=== PATIENT | male | born 1985 | race Caucasian/White ===

== ENCOUNTER 2016-10-30 12:40 | Emergency (ER) | payer SELFPAY ==
[2016-10-30 12:50] VITALS: BP 149/87
[2016-10-30] MEDS ORDERED: ONDANSETRON 4 MG TAB.RAPDIS SL ONE (12:55)
[2016-10-30] MEDS ORDERED: OXYCODONE-ACETAMINOPHEN 5-325 MG TABLET PO ONE (12:55)
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
[2016-10-30] MEDS ORDERED: ONDANSETRON ODT 4 MG TAB (6 TAB/DSPK) PO PRN (13:54)
[2016-10-30] MEDS ORDERED: HYDROCODONE/ACETAMINOPHEN 5-325 MG 6 TAB/DSPK PO PRN (13:54)
== END 2016-10-30 14:05 | disposition home or self-care (01) ==
LOC: ER 12:40
DX: S09.90XA Unspecified injury of head, initial encounter (principal); R51 Headache; Y00.XXXA Assault by blunt object, initial encounter; S50.811A Abrasion of right forearm, initial encounter; X93.XXXA Assault by handgun discharge, initial encounter; R11.2 Nausea with vomiting, unspecified; F17.200 Nicotine dependence, unspecified, uncomplicated
CPT/HCPCS: 99284; 73090; 70450; S0119

== ENCOUNTER 2017-01-24 00:33 | Emergency (ER) | payer MEDICAID ==
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
[2017-01-24] MEDS ORDERED: IBUPROFEN 600 MG TABLET PO ONE (02:32)
[2017-01-24 02:49] VITALS: BP 119/70
== END 2017-01-24 02:45 | disposition home or self-care (01) ==
LOC: ER 00:33
DX: S63.91XA Sprain of unspecified part of right wrist and hand, initial encounter (principal); S50.312A Abrasion of left elbow, initial encounter; R07.81 Pleurodynia; M79.641 Pain in right hand; M79.622 Pain in left upper arm; F17.200 Nicotine dependence, unspecified, uncomplicated; Y04.8XXA Assault by other bodily force, initial encounter
CPT/HCPCS: 99283

== ENCOUNTER 2017-01-26 16:58 | Emergency (ER) | payer MEDICAID ==
[2017-01-26] MEDS ORDERED: NORMAL SALINE 1000 ML 1,000 ML IV ONE (17:11)
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
[2017-01-26 17:43] LABS: ABSOLUTE LYMPHOCYTES (AUTO) 1.4 10^3/uL (0.5-4.7); ABSOLUTE MONOCYTES (AUTO) 0.6 10^3/uL (0.1-1.4); ABSOLUTE NEUT (AUTO) 9.7 10^3/uL (1.7-8.2); BASOPHILS % (AUTO) 0.3 % (0-2); EOSINOPHILS % (AUTO) 0.2 % (0-6); HEMATOCRIT 42.8 % (37.9-51.0); HEMOGLOBIN 14.5 g/dL (13.5-17.0); HGB HCT DIFFERENCE 0.7; LYMPHOCYTES % (AUTO) 11.7 % (13-45); MEAN CORPUSCULAR HEMOGLOBIN 31.3 pg (27.0-33.4); MEAN CORPUSCULAR HGB CONC 33.9 g/dL (32.0-36.0); MEAN CORPUSCULAR VOLUME 92 fl (80-97); MONOCYTES % (AUTO) 5.4 % (3-13); RED BLOOD COUNT 4.64 10^6/uL (4.35-5.55); RED CELL DISTRIBUTION WIDTH 13.1 % (11.5-14.0); SEGMENTED NEUTROPHILS % (AUTO) 82.4 % (42-78); WHITE BLOOD COUNT 11.7 10^3/uL (4.0-10.5)
[2017-01-26] MEDS ORDERED: NALOXONE HCL INJ 2 MG/2 ML DISP.SYRIN IV ONE (17:56)
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
[2017-01-26 18:02] LABS: ALANINE AMINOTRANSFERASE 29 U/L (21-72); ALBUMIN 4.7 g/dL (3.5-5.0); ALKALINE PHOSPHATASE 62 U/L (38-126); ANION GAP 15 (5-19); ASPARTATE AMINO TRANSFERASE 21 U/L (17-59); BILIRUBIN,DIRECT 0.3 mg/dL (0.0-0.4); BILIRUBIN,TOTAL 1.3 mg/dL (0.2-1.3); BLOOD UREA NITROGEN 13 mg/dL (7-20); CALCIUM 9.7 mg/dL (8.4-10.2); CARBON DIOXIDE 24 mmol/L (22-30); CHLORIDE 103 mmol/L (98-107); CREATININE RESULT 0.83 mg/dL (0.52-1.25); GLUCOSE 101 mg/dL (75-110); POTASSIUM 3.7 mmol/L (3.6-5.0); SODIUM 141.6 mmol/L (137-145); TOTAL PROTEIN 7.8 g/dL (6.3-8.2)
[2017-01-26 18:03] LABS: ALCOHOL < 10 mg/dL (NONE DETECTED)
[2017-01-26 19:12] LABS: APPEARANCE,URINE CLEAR; BILIRUBIN,URINE NEGATIVE (NEGATIVE); GLUCOSE, URINE NEGATIVE (NEGATIVE); KETONES,URINE 80 mg/dL (NEGATIVE); LEUKOCYTE ESTERASE,URINE NEGATIVE (NEGATIVE); NITRITE,URINE NEGATIVE (NEGATIVE); PROTEIN,URINE NEGATIVE (NEGATIVE); URINE SPECIFIC GRAVITY 1.021; UROBILINOGEN,URINE NEGATIVE mg/dL (<2.0)
[2017-01-26 19:26] LABS: URINE BARBITURATES SCREEN NEGATIVE; URINE METHADONE SCREEN NEGATIVE; URINE OPIATES LOW NEGATIVE; URINE PHENCYCLIDINE SCREEN NEGATIVE
[2017-01-26 19:54] VITALS: BP 145/77
== END 2017-01-26 20:02 | disposition home or self-care (01) ==
LOC: ER 16:58
DX: T75.89XA Other specified effects of external causes, initial encounter (principal); R53.83 Other fatigue; X58.XXXA Exposure to other specified factors, initial encounter; Y93.89 Activity, other specified; Y92.009 Unspecified place in unspecified non-institutional (private) residence as the place of occurrence of the external cause; F17.210 Nicotine dependence, cigarettes, uncomplicated
CPT/HCPCS: 99284; 96361; 96374; 36415; 80307 ×2; 85025; 80053; 81001; J2310; J7030

== ENCOUNTER 2017-03-27 18:17 | Emergency (ER) | payer SELFPAY ==
[2017-03-27] MEDS ORDERED: OXYCODONE-ACETAMINOPHEN 5-325 MG TABLET PO ONE (20:38)
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
[2017-03-27 21:53] VITALS: BP 131/86
== END 2017-03-27 21:51 | disposition home or self-care (01) ==
LOC: ER 18:17
DX: S00.12XA Contusion of left eyelid and periocular area, initial encounter (principal); S00.83XA Contusion of other part of head, initial encounter; S20.219A Contusion of unspecified front wall of thorax, initial encounter; R51 Headache; M54.2 Cervicalgia; R68.84 Jaw pain; R07.81 Pleurodynia; Y09 Assault by unspecified means; Z87.891 Personal history of nicotine dependence
CPT/HCPCS: 70450; 70486; 71111; 72125; 99284

== ENCOUNTER 2017-07-01 22:29 | Inpatient (IN) | payer SELFPAY ==
[2017-07-01] MEDS ORDERED: DICYCLOMINE HCL INJ 20 MG/2 ML AMPULE IM ONE (22:58)
[2017-07-01] MEDS ORDERED: PROMETHAZINE HCL INJ 25 MG/1 ML VIAL IM ONE (22:59)
[2017-07-01] MEDS ORDERED: METHYLPREDNISOLONE INJ 125 MG/2 ML SDV IV ONE (22:59)
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
[2017-07-01 23:26] LABS: ABSOLUTE BASOPHILS # (AUTO) 0.1 10^3/uL (0.0-0.2); ABSOLUTE EOSINOPHILS # (AUTO) 0.3 10^3/uL (0.0-0.6); ABSOLUTE LYMPHOCYTES (AUTO) 1.9 10^3/uL (0.5-4.7); ABSOLUTE MONOCYTES (AUTO) 1.4 10^3/uL (0.1-1.4); ABSOLUTE NEUT (AUTO) 10.4 10^3/uL (1.7-8.2); BASOPHILS % (AUTO) 0.5 % (0-2); EOSINOPHILS % (AUTO) 2.1 % (0-6); HEMATOCRIT 44.6 % (37.9-51.0); HEMOGLOBIN 15.4 g/dL (13.5-17.0); HGB HCT DIFFERENCE 1.6; LYMPHOCYTES % (AUTO) 13.9 % (13-45); MEAN CORPUSCULAR HEMOGLOBIN 31.6 pg (27.0-33.4); MEAN CORPUSCULAR HGB CONC 34.5 g/dL (32.0-36.0); MEAN CORPUSCULAR VOLUME 92 fl (80-97); MONOCYTES % (AUTO) 9.6 % (3-13); RED BLOOD COUNT 4.88 10^6/uL (4.35-5.55); RED CELL DISTRIBUTION WIDTH 12.9 % (11.5-14.0); SEGMENTED NEUTROPHILS % (AUTO) 73.9 % (42-78)
[2017-07-01] MEDS: NORMAL SALINE 1000 ML 1,000 ML IV PRN ×2 (23:34→23:36)
[2017-07-01 23:36] LABS: ALANINE AMINOTRANSFERASE 26 U/L (21-72); ALBUMIN 4.9 g/dL (3.5-5.0); ALKALINE PHOSPHATASE 48 U/L (38-126); ANION GAP 15 (5-19); ASPARTATE AMINO TRANSFERASE 12 U/L (17-59); BILIRUBIN,DIRECT 0.3 mg/dL (0.0-0.4); BILIRUBIN,TOTAL 0.7 mg/dL (0.2-1.3); BLOOD UREA NITROGEN 14 mg/dL (7-20); CALCIUM 9.7 mg/dL (8.4-10.2); CARBON DIOXIDE 30 mmol/L (22-30); CHLORIDE 98 mmol/L (98-107); CREATININE RESULT 0.94 mg/dL (0.52-1.25); GLUCOSE 107 mg/dL (75-110); LIPASE 47.1 U/L (23-300); POTASSIUM 3.6 mmol/L (3.6-5.0); SODIUM 142.8 mmol/L (137-145); TOTAL PROTEIN 7.7 g/dL (6.3-8.2)
--- NOTE | 2017-07-02 01:16 | RADIOLOGY REPORT (SQ) ---
EXAM DESCRIPTION: CT ABD/PELVIS WITH IV ONLY CLINICAL HISTORY: 31 years Male, abdominal pain, bloody stool COMPARISON: None. TECHNIQUE: 83 mL [id number]. This exam was performed according to our departmental dose-optimization program, which includes automated exposure control, adjustment of the mA and/or kV according to patient size and/or use of iterative reconstruction technique. FINDINGS: Extensive fluid retention throughout the bowel includes 7.5 cm diameter fluid distention of the cecum and scattered air-fluid levels throughout the small and large bowel. Small bowel dilation includes jejunal loops of stacked bowel measuring up to 3.5 cm in diameter. No significant free fluid. No free air. No focal zone of transition. Normal appendix. Liver, spleen, adrenals, pancreas, gallbladder, renal system, vasculature, lymphatics, 0.3 cm developmental L5 retrolisthesis, minimal lower thoracic disc desiccation, and musculoskeleton appear otherwise unremarkable. IMPRESSION: Extensive fluid retention and mild dilation of the small and large bowel. Differential diagnosis includes gastroenteritis, ileus, malabsorption, and low-grade obstruction.
[2017-07-02] MEDS ORDERED: ONDANSETRON HCL INJ/PF 4 MG/2 ML SDV IV ONE (01:29)
[2017-07-02] MEDS ORDERED: MORPHINE SULFATE 10 MG/ML INJ IV ONE (01:30)
[2017-07-02] MEDS ORDERED: LIDOCAINE 2% VISCOUS SOLN 20 ML UDCUP PO ONE (01:33)
[2017-07-02] MEDS ORDERED: METOCLOPRAMIDE HCL ORAL SOLN 10 MG/10 ML UDCUP PO ONE (01:33)
[2017-07-02] MEDS ORDERED: MAG HYDROX/AL HYDROX/SIMETH SUSP 30 ML UDCUP PO ONE (01:33)
[2017-07-02] MEDS ORDERED: AZITHROMYCIN 250 MG TABLET PO ONE ×2 (02:16→05:17)
[2017-07-02] MEDS ORDERED: LIDOCAINE 1% INJ-PF (10 MG/ML) 30 ML SDV INFIL ONE ×2 (02:16→05:16)
[2017-07-02] MEDS ORDERED: CEFTRIAXONE INJ 250 MG VIAL IM ONE ×2 (02:16→05:16)
[2017-07-02] MEDS ORDERED: PROMETHAZINE HCL 25 MG TABLET PO PRN (02:20)
[2017-07-02] MEDS ORDERED: ONDANSETRON HCL INJ/PF 4 MG/2 ML SDV IV PRN (02:20)
[2017-07-02] MEDS ORDERED: ACETAMINOPHEN 325 MG TABLET PO PRN (02:20)
[2017-07-02] MEDS ORDERED: NORMAL SALINE 1000 ML 1,000 ML IV PRN (02:20)
[2017-07-02] MEDS ORDERED: TEMAZEPAM 7.5 MG CAPSULE PO PRN (02:20)
[2017-07-02] MEDS ORDERED: LANSOPRAZOLE 30 MG TAB.RAP.DR PO ONE (02:25)
[2017-07-02] MEDS ORDERED: MORPHINE SULFATE 10 MG/ML INJ IV PRN (02:29)
[2017-07-02] MEDS ORDERED: METRONIDAZOLE 500 MG/NS RTU 100 ML IV ONE (03:00)
[2017-07-02] MEDS ORDERED: CIPROFLOXACIN 400 MG/D5W RTU 400 MG/200 ML RTUPB IV ONE (03:00)
[2017-07-02] MEDS ORDERED: INFLUENZA ADLT QUAD (36MOS+) 2017-18 VAC 0.5 ML SYR IM PRN (04:16)
[2017-07-02] MEDS: METHYLPREDNISOLONE INJ 125 MG/2 ML SDV IV SCH ×3 (05:24→21:09)
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
[2017-07-02] MEDS: METRONIDAZOLE 500 MG/NS RTU 100 ML IV SCH ×4 (06:01→23:22)
[2017-07-02] MEDS: MESALAMINE 400 MG CAPSULE.DR PO SCH ×3 (06:09→21:09)
[2017-07-02] MEDS ORDERED: CEFTRIAXONE INJ 500 MG VIAL ONE (06:17)
[2017-07-02] MEDS ORDERED: CIPROFLOXACIN 400 MG/D5W RTU 400 MG/200 ML RTUPB IV SCH (10:00)
[2017-07-02] MEDS ORDERED: MESALAMINE 400 MG CAPSULE.DR PO SCH (10:00)
[2017-07-02] MEDS: FAMOTIDINE 20 MG TABLET PO SCH ×2 (10:25→21:09)
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
[2017-07-02] MEDS ORDERED: HYDRALAZINE HCL INJ/PF 20 MG/1 ML SDV IV PRN (13:41)
--- NOTE | 2017-07-02 13:43 | PDOC PROGRESS REPORT ---
Subjective Progress Note for:: 07/02/17 Subjective:: The patient is seen on morning rounds for follow-up of ulcerative colitis. He is found resting in bed comfortably. Upon entering the room he is sleeping, does wake easily, however states that he does not feel well and is not interested in speaking with me at this time. He briefly answers questions; confirms continued abdominal pain and diarrhea. He denies nausea and vomiting. He states he has no questions or concerns at this time. Reason For Visit: UC FLAIR Physical Exam Vital Signs: Temp Pulse Resp BP Pulse Ox 97.6 F 101 H 16 158/93 H 97 07/02/17 11:31 07/02/17 11:31 07/02/17 11:31 07/02/17 11:31 07/02/17 11:31 Intake & Output 07/01/17 07/02/17 07/03/17 06:59 06:59 06:59 Intake Total 178 Balance 178 Weight 81.5 kg General appearance: PRESENT: no acute distress, well-developed, well-nourished Head exam: PRESENT: atraumatic, normocephalic Eye exam: PRESENT: conjunctiva pink, EOMI, PERRLA. ABSENT: scleral icterus Ear exam: PRESENT: normal external ear exam Mouth exam: PRESENT: moist, tongue midline Neck exam: ABSENT: carotid bruit, JVD, lymphadenopathy, thyromegaly Respiratory exam: PRESENT: clear to auscultation tessa. ABSENT: rales, rhonchi, wheezes Cardiovascular exam: PRESENT: RRR. ABSENT: diastolic murmur, rubs, systolic murmur Pulses: PRESENT: normal dorsalis pedis pul Vascular exam: PRESENT: normal capillary refill GI/Abdominal exam: PRESENT: hyperactive bowel sounds, normal bowel sounds, soft , tenderness - Generalized; not appreciably worsened by palpation.. ABSENT: distended, guarding, mass, organolmegaly, rebound Rectal exam: PRESENT: deferred Extremities exam: PRESENT: full ROM. ABSENT: calf tenderness, clubbing, pedal edema Neurological exam: PRESENT: alert, awake, oriented to person, oriented to place , oriented to time, oriented to situation, CN II-XII grossly intact. ABSENT: motor sensory deficit Psychiatric exam: PRESENT: appropriate affect, normal mood. ABSENT: homicidal ideation, suicidal ideation Skin exam: PRESENT: dry, intact, warm. ABSENT: cyanosis, rash Results Laboratory Results: 07/02/17 06:27 C-Reactive Protein < 5.0 Impressions: Abdomen/Pelvis CT 07/01/17 23:49 IMPRESSION: Extensive fluid retention and mild dilation of the small and large bowel. Differential diagnosis includes gastroenteritis, ileus, malabsorption, and low-grade obstruction. Assessment & Plan - Diagnosis (1) Ulcerative colitis Qualifiers: Ulcerative colitis location: unspecified ulcerative colitis location Digestive disease complication type: unspecified complication Qualified Code(s ): K51.919 - Ulcerative colitis, unspecified with unspecified complications Is this a current diagnosis for this admission?: Yes Plan: Appreciate gastroenterology's consultation and recommendations. The patient will continue on Solu-Medrol every 8 hours, mesalamine 3 times daily , IV Cipro and IV Flagyl. He will receive IV fluid replacement. Clear liquid diet. He will be provided morphine and promethazine as needed. (2) SIRS (systemic inflammatory response syndrome) Is this a current diagnosis for this admission?: Yes Plan: Secondary to dehydration and ulcerative colitis flare. (3) Hypertension Qualifiers: Hypertension type: unspecified Qualified Code(s): I10 - Essential (primary ) hypertension Is this a current diagnosis for this admission?: Yes Plan: Will start patient on low-dose lisinopril. Hydralazine with as needed parameters. (4) Chlamydia contact Is this a current diagnosis for this admission?: Yes Plan: The patient was appropriately treated with one-time dosing of azithromycin and ceftriaxone. (5) Homeless single person Is this a current diagnosis for this admission?: Yes Plan: Discharge planning has been consulted; appreciate recommendations on director social service and community resources. - Time Time Spent with patient: 15-24 minutes Medications reviewed and adjusted accordingly: Yes
[2017-07-02] MEDS ORDERED: LISINOPRIL 5 MG TABLET PO ONE (14:00)
[2017-07-02] MEDS: LISINOPRIL 5 MG TABLET PO SCH (14:10)
[2017-07-02] MEDS: CIPROFLOXACIN 400 MG/D5W RTU 400 MG/200 ML RTUPB IV SCH (18:39)
[2017-07-03] MEDS: MESALAMINE 400 MG CAPSULE.DR PO SCH ×3 (05:29→21:21)
[2017-07-03] MEDS: METRONIDAZOLE 500 MG/NS RTU 100 ML IV SCH (05:30)
[2017-07-03] MEDS: CIPROFLOXACIN 400 MG/D5W RTU 400 MG/200 ML RTUPB IV SCH (05:30)
[2017-07-03] MEDS: METHYLPREDNISOLONE INJ 125 MG/2 ML SDV IV SCH ×3 (05:30→21:21)
[2017-07-03 05:42] LABS: HEMATOCRIT 37.1 % (37.9-51.0); HGB HCT DIFFERENCE 1.6; MEAN CORPUSCULAR HEMOGLOBIN 32.2 pg (27.0-33.4); MEAN CORPUSCULAR HGB CONC 34.7 g/dL (32.0-36.0); MEAN CORPUSCULAR VOLUME 93 fl (80-97); WHITE BLOOD COUNT 23.8 10^3/uL (4.0-10.5)
[2017-07-03 05:46] LABS: HEMOGLOBIN 12.9 g/dL (13.5-17.0)
[2017-07-03 06:01] LABS: BAND NEUTROPHILS % (MANUAL) 1 % (3-5); BASOPHILS % (MANUAL) 0 % (0-2); EOSINOPHILS % (MANUAL) 0 % (0-6); LYMPHOCYTES % (MANUAL) 5 % (13-45); TOTAL CELLS COUNTED 100
[2017-07-03 06:03] LABS: BURR CELLS 1+; OVALOCYTES SLIGHT; POIKILOCYTOSIS 1+; TOXIC GRANULATION SLIGHT; TOXIC VACUOLATION PRESENT
[2017-07-03 06:08] LABS: ALANINE AMINOTRANSFERASE 19 U/L (21-72); ALBUMIN 3.6 g/dL (3.5-5.0); ALKALINE PHOSPHATASE 44 U/L (38-126); ANION GAP 9 (5-19); ASPARTATE AMINO TRANSFERASE 18 U/L (17-59); BILIRUBIN,DIRECT 0.1 mg/dL (0.0-0.4); BILIRUBIN,TOTAL 0.4 mg/dL (0.2-1.3); BLOOD UREA NITROGEN 10 mg/dL (7-20); CARBON DIOXIDE 30 mmol/L (22-30); CHLORIDE 106 mmol/L (98-107); CREATININE RESULT 0.85 mg/dL (0.52-1.25); GLUCOSE 139 mg/dL (75-110); MAGNESIUM 1.7 mg/dL (1.6-2.3); PHOSPHORUS 2.9 mg/dL (2.5-4.5); POTASSIUM 3.9 mmol/L (3.6-5.0); SODIUM 145.2 mmol/L (137-145); TOTAL PROTEIN 5.8 g/dL (6.3-8.2)
[2017-07-03 06:16] LABS: C-REACTIVE PROTEIN < 5.0 mg/L (<10.0)
[2017-07-03] MEDS: FAMOTIDINE 20 MG TABLET PO SCH ×2 (09:40→21:21)
[2017-07-03] MEDS: CIPROFLOXACIN HCL 500 MG TABLET PO SCH ×2 (10:45→21:21)
--- NOTE | 2017-07-03 13:23 | PDOC PROGRESS REPORT ---
Subjective Progress Note for:: 07/03/17 Subjective:: The patient is seen on morning rounds for follow-up of ulcerative colitis. He is found resting in bed comfortably. The patient states that his abdominal pain has resolved and his last episode of emesis was greater than 24 hours ago. He does report that he ate [employer] last night despite being ordered a clear liquid diet. He denies worsening of pain following the meal. He requests to have his diet advanced this morning to a regular diet. He states he has no other questions or concerns at this time. Reason For Visit: UC FLAIR Physical Exam Vital Signs: Temp Pulse Resp BP Pulse Ox 97.8 F 90 16 107/62 97 07/03/17 07:55 07/03/17 07:55 07/03/17 07:55 07/03/17 07:55 07/03/17 07:55 Intake & Output 07/02/17 07/03/17 07/04/17 06:59 06:59 06:59 Intake Total 178 2215 Balance 178 2215 Weight 81.5 kg 74.9 kg General appearance: PRESENT: no acute distress, well-developed, well-nourished Head exam: PRESENT: atraumatic, normocephalic Eye exam: PRESENT: conjunctiva pink, EOMI, PERRLA. ABSENT: scleral icterus Ear exam: PRESENT: normal external ear exam Mouth exam: PRESENT: moist, tongue midline Neck exam: ABSENT: carotid bruit, JVD, lymphadenopathy, thyromegaly Respiratory exam: PRESENT: clear to auscultation tessa. ABSENT: rales, rhonchi, wheezes Cardiovascular exam: PRESENT: RRR. ABSENT: diastolic murmur, rubs, systolic murmur Pulses: PRESENT: normal dorsalis pedis pul Vascular exam: PRESENT: normal capillary refill GI/Abdominal exam: PRESENT: normal bowel sounds, soft. ABSENT: distended, guarding, mass, organolmegaly, rebound, tenderness Rectal exam: PRESENT: deferred Extremities exam: PRESENT: full ROM. ABSENT: calf tenderness, clubbing, pedal edema Neurological exam: PRESENT: alert, awake, oriented to person, oriented to place , oriented to time, oriented to situation, CN II-XII grossly intact. ABSENT: motor sensory deficit Psychiatric exam: PRESENT: appropriate affect, normal mood. ABSENT: homicidal ideation, suicidal ideation Skin exam: PRESENT: dry, intact, warm. ABSENT: cyanosis, rash Results Laboratory Results: 07/03/17 05:17 07/03/17 05:17 07/03/17 07/03/17 05:17 05:17 WBC 23.8 H RBC 4.00 L Hgb 12.9 L D Hct 37.1 L MCV 93 MCH 32.2 MCHC 34.7 RDW 13.0 Plt Count 207 Seg Neutrophils % Not Reportable Lymphocytes % Not Reportable Monocytes % Not Reportable Eosinophils % Not Reportable Basophils % Not Reportable Absolute Neutrophils Not Reportable Absolute Lymphocytes Not Reportable Absolute Monocytes Not Reportable Absolute Eosinophils Not Reportable Absolute Basophils Not Reportable Sodium 145.2 H Potassium 3.9 Chloride 106 Carbon Dioxide 30 Anion Gap 9 BUN 10 Creatinine 0.85 Est GFR ( Amer) > 60 Est GFR (Non-Af Amer) > 60 Glucose 139 H Calcium 9.0 Phosphorus 2.9 Magnesium 1.7 Total Bilirubin 0.4 AST 18 ALT 19 L Alkaline Phosphatase 44 C-Reactive Protein < 5.0 Total Protein 5.8 L Albumin 3.6 Impressions: Abdomen/Pelvis CT 07/01/17 23:49 IMPRESSION: Extensive fluid retention and mild dilation of the small and large bowel. Differential diagnosis includes gastroenteritis, ileus, malabsorption, and low-grade obstruction. Assessment & Plan - Diagnosis (1) Ulcerative colitis Qualifiers: Ulcerative colitis location: unspecified ulcerative colitis location Digestive disease complication type: unspecified complication Qualified Code(s ): K51.919 - Ulcerative colitis, unspecified with unspecified complications Is this a current diagnosis for this admission?: Yes Plan: Appreciate gastroenterology's consultation and recommendations. We will advance to a regular diet. We will begin weaning Solu-Medrol. To continue mesalamine 3 times daily. We will transition to p.o. Cipro and Flagyl today. As the patient is now tolerating a regular diet and fluids, will discontinue IV fluids. He will be provided Tylenol and Zofran as needed. (2) SIRS (systemic inflammatory response syndrome) Is this a current diagnosis for this admission?: Yes Plan: Improving. Secondary to dehydration and ulcerative colitis flare. (3) Hypertension Qualifiers: Hypertension type: unspecified Qualified Code(s): I10 - Essential (primary ) hypertension Is this a current diagnosis for this admission?: Yes Plan: Blood pressures are improved today. We will continue lisinopril. Hydralazine with as needed parameters. (4) Chlamydia contact Is this a current diagnosis for this admission?: Yes Plan: The patient was appropriately treated with one-time dosing of azithromycin and ceftriaxone. (5) Homeless single person Is this a current diagnosis for this admission?: Yes Plan: Discharge planning has been consulted; appreciate recommendations on professor of social work and community resources. (6) Leukocytosis Is this a current diagnosis for this admission?: Yes Plan: I believe this to be reactionary to high-dose Solu-Medrol and not an indication of worsening infection. We will begin weaning steroids today and anticipate that white blood cell count will trend down. - Time Time Spent with patient: 15-24 minutes Medications reviewed and adjusted accordingly: Yes Anticipated discharge: Home Within: within 24 hours
[2017-07-03] MEDS: METRONIDAZOLE 500 MG TABLET PO SCH ×2 (15:01→21:21)
[2017-07-04 05:04] LABS: HEMOGLOBIN 13.2 g/dL (13.5-17.0); HGB HCT DIFFERENCE 1.6; MEAN CORPUSCULAR HEMOGLOBIN 32.2 pg (27.0-33.4); MEAN CORPUSCULAR HGB CONC 34.8 g/dL (32.0-36.0); MEAN CORPUSCULAR VOLUME 93 fl (80-97); RED CELL DISTRIBUTION WIDTH 12.8 % (11.5-14.0); WHITE BLOOD COUNT 24.2 10^3/uL (4.0-10.5)
[2017-07-04 05:07] LABS: ANION GAP 10 (5-19); BLOOD UREA NITROGEN 12 mg/dL (7-20); CALCIUM 9.3 mg/dL (8.4-10.2); CARBON DIOXIDE 31 mmol/L (22-30); CHLORIDE 103 mmol/L (98-107); CREATININE RESULT 0.82 mg/dL (0.52-1.25); GLUCOSE 141 mg/dL (75-110); POTASSIUM 3.9 mmol/L (3.6-5.0); SODIUM 144.4 mmol/L (137-145)
[2017-07-04] MEDS: METHYLPREDNISOLONE INJ 125 MG/2 ML SDV IV SCH (05:34)
[2017-07-04] MEDS: METRONIDAZOLE 500 MG TABLET PO SCH ×3 (05:34→21:20)
[2017-07-04] MEDS: MESALAMINE 400 MG CAPSULE.DR PO SCH ×3 (05:34→21:20)
[2017-07-04] MEDS: LISINOPRIL 5 MG TABLET PO SCH (09:31)
[2017-07-04] MEDS: FAMOTIDINE 20 MG TABLET PO SCH ×2 (09:31→21:20)
[2017-07-04] MEDS: PREDNISONE 20 MG TABLET PO SCH (09:32)
[2017-07-04] MEDS: CIPROFLOXACIN HCL 500 MG TABLET PO SCH ×2 (09:32→21:20)
[2017-07-04] MEDS ORDERED: ONDANSETRON HCL INJ/PF 4 MG/2 ML SDV IV PRN (11:00)
[2017-07-04] MEDS ORDERED: ACETAMINOPHEN 325 MG TABLET PO PRN (11:00)
[2017-07-04] MEDS ORDERED: TEMAZEPAM 7.5 MG CAPSULE PO PRN (11:00)
--- NOTE | 2017-07-04 11:56 | PDOC PROGRESS REPORT ---
Subjective Progress Note for:: 07/04/17 Subjective:: The patient is seen on morning rounds for follow-up of ulcerative colitis. He is found resting in bed comfortably. The patient states that his abdominal pain has resolved and that his last episode of emesis was greater than 48 hours ago. He is currently on a regular diet without worsening symptoms. He denies fever, chills, body aches, chest pain, dypsnea, cough, abd pain, n/v/d , urinary symptoms. He states he has no questions or concerns at this time. Reason For Visit: UC FLAIR Physical Exam Vital Signs: Temp Pulse Resp BP Pulse Ox 98.3 F 57 L 18 123/62 99 07/04/17 07:51 07/04/17 07:51 07/04/17 07:51 07/04/17 07:51 07/04/17 07:51 Intake & Output 07/03/17 07/04/17 07/05/17 06:59 06:59 06:59 Intake Total 2215 1904 Balance 2215 1904 Weight 74.9 kg 75.3 kg General appearance: PRESENT: no acute distress, well-developed, well-nourished Head exam: PRESENT: atraumatic, normocephalic Eye exam: PRESENT: conjunctiva pink, EOMI, PERRLA. ABSENT: scleral icterus Ear exam: PRESENT: normal external ear exam Mouth exam: PRESENT: moist, tongue midline Neck exam: ABSENT: carotid bruit, JVD, lymphadenopathy, thyromegaly Respiratory exam: PRESENT: clear to auscultation tessa. ABSENT: rales, rhonchi, wheezes Cardiovascular exam: PRESENT: RRR. ABSENT: diastolic murmur, rubs, systolic murmur Pulses: PRESENT: normal dorsalis pedis pul Vascular exam: PRESENT: normal capillary refill GI/Abdominal exam: PRESENT: normal bowel sounds, soft. ABSENT: distended, guarding, mass, organolmegaly, rebound, tenderness Rectal exam: PRESENT: deferred Extremities exam: PRESENT: full ROM. ABSENT: calf tenderness, clubbing, pedal edema Neurological exam: PRESENT: alert, awake, oriented to person, oriented to place , oriented to time, oriented to situation, CN II-XII grossly intact. ABSENT: motor sensory deficit Psychiatric exam: PRESENT: appropriate affect, normal mood. ABSENT: homicidal ideation, suicidal ideation Skin exam: PRESENT: dry, intact, warm. ABSENT: cyanosis, rash Results Laboratory Results: 07/04/17 04:27 07/04/17 04:27 07/04/17 07/04/17 04:27 04:27 WBC 24.2 H RBC 4.10 L Hgb 13.2 L Hct 38.0 MCV 93 MCH 32.2 MCHC 34.8 RDW 12.8 Plt Count 232 Sodium 144.4 Potassium 3.9 Chloride 103 Carbon Dioxide 31 H Anion Gap 10 BUN 12 Creatinine 0.82 Est GFR ( Amer) > 60 Est GFR (Non-Af Amer) > 60 Glucose 141 H Calcium 9.3 Impressions: Abdomen/Pelvis CT 07/01/17 23:49 IMPRESSION: Extensive fluid retention and mild dilation of the small and large bowel. Differential diagnosis includes gastroenteritis, ileus, malabsorption, and low-grade obstruction. Assessment & Plan - Diagnosis (1) Ulcerative colitis Qualifiers: Ulcerative colitis location: unspecified ulcerative colitis location Digestive disease complication type: unspecified complication Qualified Code(s ): K51.919 - Ulcerative colitis, unspecified with unspecified complications Is this a current diagnosis for this admission?: Yes Plan: Appreciate gastroenterology's consultation and recommendations. The patient has been successfully advanced to a regular diet. He will be transitioned to p.o. prednisone today. To continue mesalamine 3 times daily, Cipro and Flagyl. He will be provided Tylenol and Zofran as needed. (2) Hypertension Qualifiers: Hypertension type: unspecified Qualified Code(s): I10 - Essential (primary ) hypertension Is this a current diagnosis for this admission?: Yes Plan: Blood pressures are improved today. We will continue lisinopril. Hydralazine with as needed parameters. (3) Chlamydia contact Is this a current diagnosis for this admission?: Yes Plan: The patient was appropriately treated with one-time dosing of azithromycin and ceftriaxone. (4) Homeless single person Is this a current diagnosis for this admission?: Yes Plan: Discharge planning has been consulted; appreciate recommendations on social service agency director and community resources. (5) Leukocytosis Is this a current diagnosis for this admission?: Yes Plan: Remains elevated today (14.0--> 23.8--> 24.2) I believe this to be reactionary to high-dose Solu-Medrol and not an indication of worsening infection. Will continue weaning steroids and anticipate that white blood cell count will trend down. Will obtain UA given recent STI exposures and stool studies. (6) SIRS (systemic inflammatory response syndrome) Is this a current diagnosis for this admission?: Yes Plan: Secondary to dehydration and ulcerative colitis flare. - Time Time Spent with patient: 15-24 minutes Medications reviewed and adjusted accordingly: Yes Anticipated discharge: Home Within: within 24 hours
[2017-07-04 13:51] LABS: APPEARANCE,URINE CLEAR; BILIRUBIN,URINE NEGATIVE (NEGATIVE); GLUCOSE, URINE NEGATIVE (NEGATIVE); KETONES,URINE NEGATIVE (NEGATIVE); LEUKOCYTE ESTERASE,URINE NEGATIVE (NEGATIVE); NITRITE,URINE NEGATIVE (NEGATIVE); PROTEIN,URINE NEGATIVE (NEGATIVE); URINE SPECIFIC GRAVITY 1.013; UROBILINOGEN,URINE NEGATIVE mg/dL (<2.0)
[2017-07-04 14:20] LABS: URINE BARBITURATES SCREEN NEGATIVE; URINE METHADONE SCREEN NEGATIVE; URINE OPIATES LOW NEGATIVE; URINE PHENCYCLIDINE SCREEN NEGATIVE
[2017-07-04] MEDS ORDERED: KETOROLAC TROMETHAMINE INJ/PF 30 MG/1 ML SDV IV PRN (19:34)
[2017-07-05] MEDS: MESALAMINE 400 MG CAPSULE.DR PO SCH (05:26)
[2017-07-05] MEDS: METRONIDAZOLE 500 MG TABLET PO SCH (05:26)
[2017-07-05] MEDS: CIPROFLOXACIN HCL 500 MG TABLET PO SCH (09:59)
[2017-07-05] MEDS: PREDNISONE 20 MG TABLET PO SCH (09:59)
[2017-07-05] MEDS: FAMOTIDINE 20 MG TABLET PO SCH (09:59)
[2017-07-05] MEDS: LISINOPRIL 5 MG TABLET PO SCH (10:00)
[2017-07-05 10:32] LABS: HEMATOCRIT 39.4 % (37.9-51.0); HEMOGLOBIN 13.6 g/dL (13.5-17.0); HGB HCT DIFFERENCE 1.4; MEAN CORPUSCULAR HEMOGLOBIN 32.2 pg (27.0-33.4); MEAN CORPUSCULAR HGB CONC 34.5 g/dL (32.0-36.0); MEAN CORPUSCULAR VOLUME 93 fl (80-97); RED BLOOD COUNT 4.22 10^6/uL (4.35-5.55); RED CELL DISTRIBUTION WIDTH 13.2 % (11.5-14.0); WHITE BLOOD COUNT 13.3 10^3/uL (4.0-10.5)
[2017-07-05 10:43] LABS: ANION GAP 11 (5-19); BLOOD UREA NITROGEN 16 mg/dL (7-20); CALCIUM 9.3 mg/dL (8.4-10.2); CARBON DIOXIDE 33 mmol/L (22-30); CHLORIDE 101 mmol/L (98-107); CREATININE RESULT 0.85 mg/dL (0.52-1.25); GLUCOSE 96 mg/dL (75-110); POTASSIUM 3.6 mmol/L (3.6-5.0); SODIUM 144.7 mmol/L (137-145)
[2017-07-05 12:10] VITALS: BP 143/69
--- NOTE | 2017-07-05 16:17 | PDOC DISCHARGE SUMMARY ---
General - Admit/Disc Date/PCP Admission Date/Primary Care Provider: 07/02/17 01:50 Discharge Date: 07/05/17 - Discharge Diagnosis (1) Ulcerative colitis Is this a current diagnosis for this admission?: Yes (2) Hypertension Is this a current diagnosis for this admission?: Yes (3) Chlamydia contact Is this a current diagnosis for this admission?: Yes (4) Homeless single person Is this a current diagnosis for this admission?: Yes (5) Leukocytosis Is this a current diagnosis for this admission?: Yes (6) SIRS (systemic inflammatory response syndrome) Is this a current diagnosis for this admission?: Yes - Additional Information Resuscitation Status: Full Code Discharge Diet: As Tolerated Discharge Activity: Activity As Tolerated Prescriptions: Ciprofloxacin HCl [Cipro 500 mg Tablet] 500 mg PO Q12 #10 tablet Lisinopril [Prinivil 5 mg Tablet] 5 mg PO DAILY #30 tablet Mesalamine [Asacol Sr 400 mg Capsule] 1,600 mg PO Q8 #30 capsule. Metronidazole [Flagyl 500 mg Tablet] 500 mg PO Q8 #30 tablet Prednisone [Deltasone 20 mg Tablet] 40 mg PO DAILY #4 tablet Home Medications: Acetaminophen [Tylenol 325 mg Tablet] 650 mg PO Q4HP PRN tablet 07/05/17 Ciprofloxacin HCl [Cipro 500 mg Tablet] 500 mg PO Q12 #10 tablet 07/05/17 Lisinopril [Prinivil 5 mg Tablet] 5 mg PO DAILY #30 tablet 07/05/17 Mesalamine [Asacol Sr 400 mg Capsule] 1,600 mg PO Q8 #30 capsule. 07/05/17 Metronidazole [Flagyl 500 mg Tablet] 500 mg PO Q8 #30 tablet 07/05/17 Prednisone [Deltasone 20 mg Tablet] 40 mg PO DAILY #4 tablet 07/05/17 History of Present Illness History of Present Illness: Per H&P by Dr. Pierce: ALLYSSA MOTA is a 31 year old male with a past medical history of ulcerative colitis presents to the emergency department with complaints of abdominal pain and diarrhea. Patient reports that he has been bleeding for the last month rectally. He reports that he has been having increased abdominal pain which he described as crampy in nature and diarrhea for the last several days. He does report nausea and vomiting. He does report subjective fevers and chills. Patient reports that he previously saw Dr. Gomez , but is unable to afford medications for his ulcerative colitis. He is referred to the hospitalist service for UC flare. Hospital Course Hospital Course: The patient was admitted to medical telemetry and placed on IV fluids, IV steroids, mesalamine, Cipro and Flagyl. Gastroenterology was consulted; they were in agreement with plan of care and recommended that the patient follow up as an outpatient for consideration of Humara. The patient's diarrheal symptoms resolved immediately with gradual improvements in his abdominal pain, however, he did not require any pain medications during the admission. On day of discharge, he is tolerating a regular diet without worsening abdominal pain, diarrhea, nausea or vomiting. He was noted to be hypertensive throughout the admission and so was started on low dose lisinopril with acceptable control of blood pressures. The patient also reported a recent chlamydia exposure and requested treatment. He was provided one-time dosing of azithromycin and ceftriaxone for treatment of GC/Ch. He is discharged with prescriptions for cipro, flagyl, prednisone, and lisinopril. He has been scheduled an appointment with the [facility] to establish care. He is also instructed to follow up with Dr. Gonzales within 4-6 weeks. Physical Exam Vital Signs: Temp Pulse Resp BP Pulse Ox 98.0 F 88 16 143/69 H 100 07/05/17 12:45 07/05/17 12:45 07/05/17 12:45 07/05/17 12:45 07/05/17 12:45 Intake & Output 07/04/17 07/05/17 07/06/17 06:59 06:59 06:59 Intake Total 1904 2320 Output Total 800 Balance 1904 1520 Weight 75.3 kg General appearance: PRESENT: no acute distress, well-developed, well-nourished Head exam: PRESENT: atraumatic, normocephalic Eye exam: PRESENT: conjunctiva pink, EOMI, PERRLA. ABSENT: scleral icterus Ear exam: PRESENT: normal external ear exam Mouth exam: PRESENT: moist, tongue midline Neck exam: ABSENT: carotid bruit, JVD, lymphadenopathy, thyromegaly Respiratory exam: PRESENT: clear to auscultation tessa. ABSENT: rales, rhonchi, wheezes Cardiovascular exam: PRESENT: RRR. ABSENT: diastolic murmur, rubs, systolic murmur Pulses: PRESENT: normal dorsalis pedis pul Vascular exam: PRESENT: normal capillary refill GI/Abdominal exam: PRESENT: normal bowel sounds, soft. ABSENT: distended, guarding, mass, organolmegaly, rebound, tenderness Rectal exam: PRESENT: deferred Extremities exam: PRESENT: full ROM. ABSENT: calf tenderness, clubbing, pedal edema Neurological exam: PRESENT: alert, awake, oriented to person, oriented to place , oriented to time, oriented to situation, CN II-XII grossly intact. ABSENT: motor sensory deficit Psychiatric exam: PRESENT: appropriate affect, normal mood. ABSENT: homicidal ideation, suicidal ideation Skin exam: PRESENT: dry, intact, warm. ABSENT: cyanosis, rash Results Laboratory Results: 07/05/17 10:05 07/05/17 10:05 07/04/17 07/05/17 07/05/17 16:50 10:05 10:05 WBC 13.3 H RBC 4.22 L Hgb 13.6 Hct 39.4 MCV 93 MCH 32.2 MCHC 34.5 RDW 13.2 Plt Count 184 Sodium 144.7 Potassium 3.6 Chloride 101 Carbon Dioxide 33 H Anion Gap 11 BUN 16 Creatinine 0.85 Est GFR ( Amer) > 60 Est GFR (Non-Af Amer) > 60 Glucose 96 Calcium 9.3 Stool for White Cells NO WBCs SEEN Impressions: Abdomen/Pelvis CT 07/01/17 23:49 IMPRESSION: Extensive fluid retention and mild dilation of the small and large bowel. Differential diagnosis includes gastroenteritis, ileus, malabsorption, and low-grade obstruction. Qualifiers PATEINT BEING DISCHARGED WITH ANY OF THE FOLLOWING DIAGNOSIS?: No
== END 2017-07-05 14:29 | disposition home or self-care (01) | DRG 387 ==
LOC: ER 22:29 → EH 07-02 01:50 → 5 07-02 03:50
PROVIDERS: ADMIT Family Medicine; ATTEND Family Medicine
PROC: 3E0234Z Introduction of Serum, Toxoid and Vaccine into Muscle, Percutaneous Approach (ICD-10-PCS; principal; 2017-07-05)
DX: K51.919 Ulcerative colitis, unspecified with unspecified complications (principal); I10 Essential (primary) hypertension; Z20.2 Contact with and (suspected) exposure to infections with a predominantly sexual mode of transmission; F31.9 Bipolar disorder, unspecified; E86.0 Dehydration; D72.829 Elevated white blood cell count, unspecified; T38.0X5A Adverse effect of glucocorticoids and synthetic analogues, initial encounter; Z23 Encounter for immunization; Z59.0 Homelessness; Z79.899 Other long term (current) drug therapy; Z59.9 Problem related to housing and economic circumstances, unspecified; Z87.820 Personal history of traumatic brain injury
CPT/HCPCS: 36415; 74177; 80048; 80053; 80307; 81001; 83690; 83735; 84100; 85025; 85027; 86140; 87040; 87045; 87086; 87205; 87493; 89055; 90686; 96361; 96372; 96374; 99285; J0500; J0696; J0744; J1885; J2270; J2405; J2550; J2930; J3490; J7030; J7512

== ENCOUNTER 2017-08-02 15:34 | Emergency (ER) | payer SELFPAY ==
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
[2017-08-02 19:37] VITALS: BP 131/77
== END 2017-08-02 19:35 | disposition home or self-care (01) ==
LOC: ER 15:34
DX: L02.211 Cutaneous abscess of abdominal wall (principal); Z72.0 Tobacco use
CPT/HCPCS: 99281; 87070; 87205; 87075; 87077; 87186; 10060; A6266

== ENCOUNTER 2018-01-20 00:42 | Emergency (ER) | payer SELFPAY ==
[2018-01-20 00:51] VITALS: BP 130/73
[2018-01-20] MEDS ORDERED: AZITHROMYCIN 250 MG TABLET PO ONE (01:07)
[2018-01-20] MEDS ORDERED: LIDOCAINE 1% INJ-PF (10 MG/ML) 30 ML SDV INJ ONE (01:07)
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
[2018-01-20] MEDS ORDERED: CEFTRIAXONE INJ 250 MG VIAL IM ONE (01:20)
[2018-01-20 01:32] LABS: APPEARANCE,URINE CLEAR; BILIRUBIN,URINE NEGATIVE (NEGATIVE); COLOR,URINE YELLOW; GLUCOSE, URINE NEGATIVE (NEGATIVE); KETONES,URINE NEGATIVE (NEGATIVE); LEUKOCYTE ESTERASE,URINE NEGATIVE (NEGATIVE); NITRITE,URINE NEGATIVE (NEGATIVE); PROTEIN,URINE NEGATIVE (NEGATIVE); URINE SPECIFIC GRAVITY 1.016
[2018-01-20 02:59] LABS: CHLAM PCR NOT DETECTED (NOT DETECT); GON PCR NOT DETECTED (NOT DETECT)
== END 2018-01-20 01:58 | disposition home or self-care (01) ==
LOC: ER 00:42
DX: Z20.2 Contact with and (suspected) exposure to infections with a predominantly sexual mode of transmission (principal); N34.2 Other urethritis; I10 Essential (primary) hypertension; R36.9 Urethral discharge, unspecified; R10.11 Right upper quadrant pain; R10.12 Left upper quadrant pain; R10.31 Right lower quadrant pain; R10.32 Left lower quadrant pain
CPT/HCPCS: 99283; 96372; 81001; 87491; 87591; J3490; J0696

== ENCOUNTER 2018-02-02 10:11 | Emergency (ER) | payer SELFPAY ==
[2018-02-02] MEDS ORDERED: OXYCODONE-ACETAMINOPHEN 5-325 MG TABLET PO ONE (12:01)
--- NOTE | 2018-02-02 12:08 | RADIOLOGY REPORT (SQ) ---
EXAM DESCRIPTION: HAND BILATERAL 3 VIEWS COMPLETED DATE/TIME: 02/02/2018 11:45 am REASON FOR STUDY: bilateral hand pain COMPARISON: None. EXAM PARAMETERS: NUMBER OF VIEWS: Three views. TECHNIQUE: AP, lateral and oblique radiographic images acquired of the right and left hand. LIMITATIONS: None. FINDINGS: MINERALIZATION: Normal. BONES: No acute fracture or dislocation. No worrisome bone lesions. JOINTS: No effusions. SOFT TISSUES: No soft tissue swelling. No foreign body. OTHER: No other significant finding. IMPRESSION: NEGATIVE STUDY OF THE RIGHT AND LEFT HANDS. NO RADIOGRAPHIC EVIDENCE OF ACUTE INJURY. TECHNICAL DOCUMENTATION: JOB ID: [id number] [employer]- All Rights Reserved Reading location - IP/workstation name: [email or web address]
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
[2018-02-02 12:34] VITALS: BP 144/83
== END 2018-02-02 12:40 | disposition home or self-care (01) ==
LOC: ER 10:11
DX: S60.229A Contusion of unspecified hand, initial encounter (principal); M79.641 Pain in right hand; M79.642 Pain in left hand; M79.89 Other specified soft tissue disorders; Y00.XXXA Assault by blunt object, initial encounter; F12.10 Cannabis abuse, uncomplicated; Z87.81 Personal history of (healed) traumatic fracture
CPT/HCPCS: 99283

== ENCOUNTER 2018-03-07 03:02 | Emergency (ER) | payer SELFPAY ==
[2018-03-07 03:17] VITALS: BP 120/80
[2018-03-07] MEDS ORDERED: IBUPROFEN 600 MG TABLET PO ONE (03:34)
--- NOTE | 2018-03-07 04:33 | RADIOLOGY REPORT (SQ) ---
EXAM DESCRIPTION: XR FOOT 3 OR MORE VIEWS COMPLETED DATE/TME: 03/07/2018 03:34 CLINICAL HISTORY: 32 years, Male, right foot pain/injury COMPARISON: None. FINDINGS: 3 views of the right foot. No acute fracture or dislocation. Normal osseous mineralization. IMPRESSION: 1. No acute fracture or dislocation. 2011 [facility] [employer]- All Rights Reserved
--- NOTE | 2018-03-07 04:35 | RADIOLOGY REPORT (SQ) ---
CLINICAL DATA: 32-year-old male status post fall with lateral left knee pain TECHNICAL DATA: Four x-ray views of the left knee were performed. COMPARISONS: None FINDINGS: There is no evidence of fracture or dislocation. There is no significant arthritis or degenerative change. There is a nonaggressive ovoid focal area of sclerosis within the lateral femoral metaphysis with parallel orientation most consistent with a benign bone island. Bone mineralization is normal No focal soft tissue abnormalities are identified. IMPRESSION: No evidence of acute osseous injury involving the left knee.
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
== END 2018-03-07 05:03 | disposition home or self-care (01) ==
LOC: ER 03:02
DX: S93.401A Sprain of unspecified ligament of right ankle, initial encounter (principal); X58.XXXA Exposure to other specified factors, initial encounter; M25.571 Pain in right ankle and joints of right foot; M25.562 Pain in left knee; F17.200 Nicotine dependence, unspecified, uncomplicated
CPT/HCPCS: 99283

== ENCOUNTER 2018-04-14 20:20 | Emergency (ER) | payer SELFPAY ==
[2018-04-14 21:01] VITALS: BP 146/71
[2018-04-14] MEDS ORDERED: AZITHROMYCIN 250 MG TABLET PO ONE (22:14)
[2018-04-14] MEDS ORDERED: CEFTRIAXONE INJ 250 MG VIAL IM ONE (22:14)
[2018-04-14] MEDS ORDERED: LIDOCAINE 1% INJ-PF (10 MG/ML) 30 ML SDV INJ ONE (22:14)
[2018-04-14] MEDS ORDERED: METRONIDAZOLE 500 MG TABLET PO ONE (22:15)
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
[2018-04-15 00:21] LABS: CHLAM PCR NOT DETECTED (NOT DETECT); GON PCR NOT DETECTED (NOT DETECT)
== END 2018-04-14 22:52 | disposition home or self-care (01) ==
LOC: ER 20:20
DX: R36.9 Urethral discharge, unspecified (principal); Z20.2 Contact with and (suspected) exposure to infections with a predominantly sexual mode of transmission
CPT/HCPCS: 99283; 96372; 87491; 87591; J3490; J0696

== ENCOUNTER 2018-08-05 23:05 | Emergency (ER) | payer SELFPAY ==
[2018-08-06 02:27] LABS: APPEARANCE,URINE CLEAR; BILIRUBIN,URINE NEGATIVE (NEGATIVE); COLOR,URINE YELLOW; GLUCOSE, URINE NEGATIVE (NEGATIVE); KETONES,URINE NEGATIVE (NEGATIVE); LEUKOCYTE ESTERASE,URINE NEGATIVE (NEGATIVE); NITRITE,URINE NEGATIVE (NEGATIVE); PROTEIN,URINE NEGATIVE (NEGATIVE); URINE SPECIFIC GRAVITY 1.026; UROBILINOGEN,URINE NEGATIVE mg/dL (<2.0)
[2018-08-06] MEDS ORDERED: CEFTRIAXONE INJ 250 MG VIAL IM ONE (02:44)
[2018-08-06] MEDS ORDERED: LIDOCAINE 1% INJ-PF (10 MG/ML) 30 ML SDV IM ONE (02:44)
[2018-08-06] MEDS ORDERED: AZITHROMYCIN 250 MG TABLET PO ONE (02:45)
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
[2018-08-06 03:20] VITALS: BP 125/77
[2018-08-06 03:49] LABS: CHLAM PCR NOT DETECTED (NOT DETECT); GON PCR NOT DETECTED (NOT DETECT)
== END 2018-08-06 03:20 | disposition home or self-care (01) ==
LOC: ER 23:05
DX: Z20.2 Contact with and (suspected) exposure to infections with a predominantly sexual mode of transmission (principal); R36.9 Urethral discharge, unspecified
CPT/HCPCS: 99283; 96372; 81001; 87491; 87591; J3490; J0696